=== PATIENT | female | born 1995 ===

== ENCOUNTER 2018-12-29 21:58 | Emergency (ER) | payer BC ==
[~2018-12-29] VITALS: Ht 162.6 cm; Wt 71.7 kg
[2018-12-29] MEDS ORDERED: IBUPROFEN 600 MG TAB PO STA (22:38)
--- NOTE | 2018-12-29 23:22 | Diagnostic Imaging Report ---
EXAMINATION: CHEST 2 VIEWS INDICATION: ^COUGH CONGESTION FEVER COMPARISON: None FINDINGS: PA and lateral views TUBES and LINES: None. LUNGS: Lungs are well inflated. Bilateral peribronchial cuffing, especially extending into the left lung base. There is no evidence of pneumonia or pulmonary edema. PLEURA: No pleural effusion or pneumothorax. HEART AND MEDIASTINUM: The cardiomediastinal silhouette is unremarkable. BONES AND SOFT TISSUES: No acute osseous lesion. Soft tissues are unremarkable. UPPER ABDOMEN: No free air under the diaphragm. IMPRESSION: Bilateral peribronchial cuffing, which could represent viral etiology or reactive airway disease. Signed by: Dr. Bryant Hunter M.D. on 12/29/2018 11:18 PM
[2018-12-29 23:52] LABS: STREPTOCOCCUS GRP A ANTIGEN NEGATIVE (NEGATIVE)
[2018-12-29 23:53] LABS: CLARITY,URINE CLEAR (CLEAR); COLOR,URINE YELLOW (YELLOW)
[2018-12-29 23:54] LABS: BILIRUBIN,URINE NEGATIVE (NEGATIVE); KETONES,URINE TRACE (NEGATIVE); LEUKOCYTE ESTERASE ,URINE NEGATIVE (NEGATIVE); NITRITE,URINE NEGATIVE (NEGATIVE); PROTEIN,URINE DIPSTICK NEGATIVE (NEGATIVE); URINE UROBILINOGEN 0.2 mg/dL (0.2 - 1)
[2018-12-30 00:01] LABS: INFLUENZAE A&B ANTIGEN (RAPID) NEGATIVE (NEGATIVE)
[2018-12-30 00:02] LABS: BACTERIA,URINE MANY /HPF; EPITHELIAL CELLS,URINE MANY /LPF; RBC,URINE 0-5 /HPF (0-5)
[2018-12-30 00:14] LABS: PREGNANCY TEST, URINE NEGATIVE (NEGATIVE)
[2018-12-30] MEDS ORDERED: METHYLPREDNISOLONE SOD SUCC 125 MG/2ML VIAL IM ONE (00:45)
[2018-12-30 01:04] VITALS: BP 114/81
== END 2018-12-30 01:10 | disposition home or self-care (01) ==
LOC: ER 21:58
DX: R05 Cough (principal); J20.9 Acute bronchitis, unspecified
CPT/HCPCS: 71046; 81001; 81025; 83518; 87070; 87400; 99283; J2930